=== PATIENT | male | born 1960 | race Caucasian/White ===

== ENCOUNTER 2020-08-07 10:57 | Emergency (ER) | payer OTHER ==
[~2020-08-07] VITALS: Ht 170.2 cm; Wt 108.9 kg
[2020-08-07] MEDS ORDERED: CELEXA40 MG PO (11:10)
[2020-08-07] MEDS ORDERED: OMEPRAZOLE 20 M20 M1 PO (11:11)
[2020-08-07] MEDS ORDERED: B-12 (11:11)
[2020-08-07 11:52] LABS: ABSOLUTE BASOPHILS 0.1 thou/uL (0.0-0.2); ABSOLUTE EOSINOPHILS 0.2 thou/uL (0.0-0.7); ABSOLUTE LYMPHOCYTES 1.4 thou/uL (0.8-5.3); ABSOLUTE MONOCYTES 0.4 thou/uL (0.0-1.2); ABSOLUTE NEUTROPHILS 3.8 thou/uL (1.6-8.1); BASOPHILS 1.1 %; EOSINOPHILS 2.8 %; HEMATOCRIT 44.3 % (42.0-52.0); HEMOGLOBIN 15.5 gm/dL (14.0-18.0); LYMPHOCYTES 24.6 %; MCH 30.9 pg (26.0-34.0); MCV 88.2 fL (80.0-100.0); MONOCYTES 6.1 %; MPV 8.4 fl. (7.2-11.1); NUCLEATED RBCS 0 /100WBC; PLATELET COUNT* 248 thou/uL (150-400); POLYS 65.4 %; RBC 5.03 mil/uL (4.50-6.00); RDW-CV 13.5 % (10.5-14.5); WBC 5.9 thou/uL (4.0-11.0)
[2020-08-07 12:01] LABS: CREATININE 0.9 mg/dL (0.6-1.3)
[2020-08-07 12:05] LABS: ALBUMIN 3.8 g/dL (3.4-5.0); TOTAL BILIRUBIN 0.4 mg/dL (<0.1-1.0); TOTAL PROTEIN 7.8 g/dL (6.4-8.2)
[2020-08-07 16:40] VITALS: BP 141/92
== END 2020-08-07 16:40 | disposition short-term general hospital (02) ==
LOC: M.ERS 10:57
PROVIDERS: Nurse Practitioner Family
DX: R04.2 Hemoptysis (principal); Z20.822 Contact with and (suspected) exposure to COVID-19; Z79.899 Other long term (current) drug therapy